=== PATIENT | male | born 1995 | race Two or more races ===

== ENCOUNTER 2018-09-17 07:23 | Outpatient (CLI) | payer OTHER | END 2018-09-17 07:33 | disposition home or self-care (01) | LOC: LAB 07:23 | DX: M54.5 Low back pain (principal); N39.0 Urinary tract infection, site not specified ==

== ENCOUNTER 2018-09-17 08:53 | Outpatient (CLI) | payer OTHER | END 2018-09-17 08:54 | disposition home or self-care (01) | LOC: SONOGRAMA 08:53 | DX: M54.5 Low back pain (principal); N39.0 Urinary tract infection, site not specified ==

== ENCOUNTER 2018-09-22 10:54 | Outpatient (CLI) | payer OTHER | END 2018-09-22 11:00 | disposition home or self-care (01) | LOC: LAB 10:54 | DX: N39.0 Urinary tract infection, site not specified (principal) ==

== ENCOUNTER 2018-09-30 11:50 | Outpatient (CLI) | payer OTHER | END 2018-09-30 13:44 | disposition home or self-care (01) | LOC: LAB 11:50 | DX: N39.0 Urinary tract infection, site not specified (principal) ==

== ENCOUNTER 2018-10-02 11:34 | Outpatient (CLI) | payer OTHER ==
[2018-10-03] MEDS ORDERED: SULFATRIM 800-120 ML (00:22)
[2018-10-03] MEDS ORDERED: PROBIOTIC1 EAC4 (00:23)
[2018-10-03] MEDS ORDERED: DOXYCYCLINE150 MG (00:23)
[2018-10-03] MEDS ORDERED: ZANTAC300 MG (00:24)
== END 2018-10-02 16:57 | disposition home or self-care (01) ==
LOC: LAB 11:34
DX: N39.0 Urinary tract infection, site not specified (principal)

== ENCOUNTER 2018-10-02 23:58 | Emergency (ER) | payer OTHER ==
[~2018-10-02] VITALS: Ht 177.8 cm; Wt 69.9 kg
[2018-10-03] MEDS ORDERED: SULFATRIM 800-120 ML (00:22)
[2018-10-03] MEDS ORDERED: DOXYCYCLINE150 MG (00:23)
[2018-10-03] MEDS ORDERED: PROBIOTIC1 EAC4 (00:23)
[2018-10-03] MEDS ORDERED: ZANTAC300 MG (00:24)
== END 2018-10-03 07:41 ==
LOC: ER 23:58
DX: N41.0 Acute prostatitis (principal); R30.0 Dysuria

== ENCOUNTER 2018-10-15 10:55 | Outpatient (CLI) | payer OTHER ==
[~2018-10-15 10:55] MED LIST: DOXYCYCLINE150 MG; PROBIOTIC1 EAC4; SULFATRIM 800-120 ML; ZANTAC300 MG
== END 2018-10-15 11:00 | disposition home or self-care (01) ==
LOC: LAB 10:55
DX: R80.8 Other proteinuria (principal)

== ENCOUNTER 2023-11-13 08:12 | Outpatient (CLI) | payer OTHER | END 2023-11-13 08:23 | disposition home or self-care (01) | LOC: RAD 08:12 | PROVIDERS: ATTEND Pediatrics | DX: J31.0 Chronic rhinitis (principal); J32.9 Chronic sinusitis, unspecified ==

== ENCOUNTER 2024-07-23 17:17 | Emergency (ER) | payer OTHER ==
[~2024-07-23] VITALS: Ht 180.3 cm; Wt 73.5 kg
[2024-07-23 20:06] LABS: HEMATOCRIT 42.2 % (39.0-48.0); MEAN CORPUSCULAR HEMOGLOBIN 26.6 pg (27.00-32.0); MEAN CORPUSCULAR HGB CONC 33.2 g/dl (32.0-36.0); PLATELET COUNT 221 K/uL (150-450); RED BLOOD COUNT 5.28 M/uL (4.00-6.00); RED CELL DISTRIBUTION WIDTH 13.2 % (11.5-14.5)
[2024-07-23 20:54] LABS: INR 1.07; PARTIAL THROMBOPLASTIN TIME 30.8 SECONDS (22.0-34.0); PROTHROMBIN TIME 11.6 SECONDS (9.0-11.5)
== END 2024-07-23 21:20 | disposition home or self-care (01) ==
LOC: ER 17:19
PROVIDERS: Preventive Medicine Public Health & General Preventive Medicine
DX: R04.0 Epistaxis (principal); Z88.0 Allergy status to penicillin; Z88.6 Allergy status to analgesic agent